=== PATIENT | male | born 1970 | race American Indian/Alaskan Native ===

== ENCOUNTER 2020-04-09 15:48 | Emergency (ER) | payer OTHER ==
[2020-04-09 17:09] VITALS: BP 150/90
[2020-04-09 18:23] LABS: Bilirubin,Urine NEG (Negative); Blood,Urine NEG (Negative); Color,Urine Yellow (Yellow); Mucus,Urine FEW /HPF; Protein,Urine <15 mg/dL mg/dL (Negative); RBC,Urine < 1.0 /HPF (0.0-6.0)
--- NOTE | 2020-04-09 18:32 | Emergency Department Report ---
Chief Complaint: Urogenital-Male Stated Complaint: BURNING URINE Time Seen by Provider: 04/09/20 17:09 - HPI History of Present Illness: This is a 49-year-old male nontoxic, well in appearance with no signs of distress presents to the ED intermittent dysuria and hematuria. Patient denies any penile discharge. Patient stated he is currently asymptotic. Denies any penile discharge, testicular pain, or swelling. Patient denies any other urinary symptoms. Denies any flank pain. Patient denies any fever, chills, headache, nausea, vomiting, chest pain or shortness of breathe. denies any other symptoms or complaints. Denies any allergies or PMH. - Exam Vital Signs: Vital Signs 04/09/20 17:08 Temperature 97.9 F Pulse Rate 77 Respiratory 16 Rate Blood Pressure 150/90 [Right] O2 Sat by Pulse 98 Oximetry Physical Exam: no penile discharge. no urinary symptoims. no flank pain. normal physical exam. MSE screening note: Focused history and physical exam performed. Due to findings the following was ordered: ED Medical Decision Making - Lab Data Lab Results 04/09/20 Range/Units 17:24 Urine Color Yellow (Yellow) Urine Turbidity Clear (Clear) Urine pH 5.0 (5.0-7.0) Ur Specific [place] 1.026 (1.003-1.030) Urine Protein <15 mg/dl (Negative) mg/dL Urine Glucose (UA) Neg (Negative) mg/dL Urine Ketones Neg (Negative) mg/dL Urine Blood Neg (Negative) Urine Nitrite Neg (Negative) Urine Bilirubin Neg (Negative) Urine Urobilinogen 2.0 (<2.0) mg/dL Ur Leukocyte Esterase Neg (Negative) Urine WBC (Auto) 1.0 (0.0-6.0) /HPF Urine RBC (Auto) < 1.0 (0.0-6.0) /HPF Urine Mucus Few /HPF - Medical Decision Making This is a 49-year-old male that presents with nonmedical emergency complaint. UA is unremarkable. Patient denies any symptoms. I gave patient many different referrals to follow-up with PCP. sent and was instructed to return in 3-5 days for results. Patient was instructed to Follow-up with a primary care doctor in 3-5 days or if symptoms worsen and continue return to emergency room as soon as possible. At time of discharge, the patient does not seem toxic or ill in appearance. No acute signs of distress noted. Patient agrees to discharge treatment plan of care. No further questions noted by the patient. ED Disposition for MSE Clinical Impression: History of dysuria Disposition: MED SCREENING EXAM-LEFT Is pt being admited?: No Does the pt Need Aspirin: No Condition: Stable Additional Instructions: Follow-up with a primary care doctor in 3-5 days or if symptoms worsen and continue return to emergency room as soon as possible. Referrals: PRIMARY CAREMD [Referring] - 3-5 Days BRENDA KEATING MD [Staff Physician] - 3-5 Days
== END 2020-04-09 18:59 | disposition left against medical advice (07) ==
LOC: ED 15:48
DX: R30.0 Dysuria (principal); Z53.21 Procedure and treatment not carried out due to patient leaving prior to being seen by health care provider
CPT/HCPCS: 81001

== ENCOUNTER 2021-01-20 08:36 | Emergency (ER) | payer OTHER ==
--- NOTE | 2021-01-20 09:51 | XRay Report ---
CHEST 2 VIEWS INDICATION: cough, fever. COMPARISON: None. FINDINGS: Support devices: None. Heart: Within normal limits. Lungs/Pleura: No acute air space or interstitial disease. No significant pleural effusion. IMPRESSION: No acute findings. Signer Name: Anoop Gonzáles MD Signed: 01/20/2021 9:47 AM Workstation Name: [id number]
--- NOTE | 2021-01-20 11:09 | Emergency Department Report ---
- General Chief Complaint: Upper Respiratory Infection Stated Complaint: VOMITING/YELLOW MUCUS W/COUGH Time Seen by Provider: 01/20/21 11:02 Source: patient Mode of arrival: Ambulatory Limitations: No Limitations - History of Present Illness Initial Comments: Patient is a 50-year-old male presents emergency room with complaints of a cough with mucus production that began 1 week ago. He has associated nausea, vomiting, diarrhea, generalized weakness, fatigue. He states that occasionally he has chest discomfort or shortness of breath after frequent coughing but otherwise is not experiencing chest pain or shortness of breath. He denies any chest pain or shortness of breath currently. He denies any hematochezia, melena, hematemesis, fever, urinary symptoms, leg swelling, pleuritic pain. Patient states that also for the last 2 days he has had irritation and redness to the bilateral eyes. He states he has associated drainage and crusting and when he wakes up in the morning his eyelashes are matted. He denies any known sick contacts or recent travel. He has not been vaccinated or tested for COVID- 19. He denies any past medical history. No allergies to medications. - Related Data Previous Rx's Medication Instructions Recorded Last Taken Type Benzonatate [Tessalon Perles] 100 mg PO Q8HR PRN #12 capsule 01/20/21 Unknown Rx Blood Sugar Diagnostic [Test 1 each MC TID #1 box 01/20/21 Unknown Rx Strips] Hyoscyamine Subl [Levsin Sl 0.125 0.125 mg SL Q6HR PRN #10 tab 01/20/21 Unknown Rx TAB] Insulin NPH/Regular [Novolin 70/30] 17 unit SUB-Q TIDAC #1 vial 01/20/21 Unknown Rx Ondansetron [Zofran Odt] 4 mg PO Q8HR PRN #10 tab.rapdis 01/20/21 Unknown Rx Polymyxin B Sulf/Trimethoprim 1 drop OP Q3HR 7 Days #1 bottle 01/20/21 Unknown Rx [Polytrim Eye Drops] Syringe-Needle,Insulin,0.5 ml 1 each MC TID #1 box 01/20/21 Unknown Rx [Insulin Syringe/Needle 0.5 ML] guaiFENesin ER [Mucinex ER] 600 mg PO Q12H #14 tablet.er 01/20/21 Unknown Rx Allergies Allergy/AdvReac Type Severity Reaction Status Date / Time No Known Allergies Allergy Unverified 04/09/20 17:07 ED Review of Systems ROS: Stated complaint: VOMITING/YELLOW MUCUS W/COUGH Other details as noted in HPI Comment: All other systems reviewed and negative ED Past Medical Hx - Past Medical History Previous Medical History?: No - Surgical History Past Surgical History?: No - Medications Home Medications: Home Medications Medication Instructions Recorded Confirmed Last Taken Type Benzonatate [Tessalon Perles] 100 mg PO Q8HR PRN #12 capsule 01/20/21 Unknown Rx Blood Sugar Diagnostic [Test 1 each MC TID #1 box 01/20/21 Unknown Rx Strips] Hyoscyamine Subl [Levsin Sl 0.125 0.125 mg SL Q6HR PRN #10 tab 01/20/21 Unknown Rx TAB] Insulin NPH/Regular [Novolin 70/30] 17 unit SUB-Q TIDAC #1 vial 01/20/21 Unknown Rx Ondansetron [Zofran Odt] 4 mg PO Q8HR PRN #10 tab.rapdis 01/20/21 Unknown Rx Polymyxin B Sulf/Trimethoprim 1 drop OP Q3HR 7 Days #1 bottle 01/20/21 Unknown Rx [Polytrim Eye Drops] Syringe-Needle,Insulin,0.5 ml 1 each MC TID #1 box 01/20/21 Unknown Rx [Insulin Syringe/Needle 0.5 ML] guaiFENesin ER [Mucinex ER] 600 mg PO Q12H #14 tablet.er 01/20/21 Unknown Rx ED Physical Exam - General Limitations: No Limitations General appearance: alert, in no apparent distress - Head Head exam: Present: atraumatic, normocephalic - Eye Eye exam: Present: PERRL, EOMI, conjunctival injection (bilaterally). Absent: periorbital swelling, periorbital tenderness - ENT ENT exam: Present: mucous membranes moist - Respiratory Respiratory exam: Present: normal lung sounds bilaterally. Absent: respiratory distress, wheezes, rales, rhonchi, stridor, chest wall tenderness, accessory muscle use, decreased breath sounds, prolonged expiratory - Cardiovascular Cardiovascular Exam: Present: regular rate, normal rhythm, normal heart sounds. Absent: systolic murmur, diastolic murmur, rubs, gallop - GI/Abdominal GI/Abdominal exam: Present: soft, normal bowel sounds. Absent: distended, tenderness, guarding, rebound, rigid - Neurological Exam Neurological exam: Present: alert, oriented X3 - Psychiatric Psychiatric exam: Present: normal affect, normal mood - Skin Skin exam: Present: warm, dry, intact ED Course Vital Signs 01/20/21 01/20/21 09:25 13:11 Temperature 99.6 F Pulse Rate 84 78 Respiratory 16 Rate Blood Pressure 143/76 145/82 [Right] O2 Sat by Pulse 96 98 Oximetry ED Medical Decision Making - Lab Data Result diagrams: 01/20/21 12:06 01/20/21 12:06 Labs 01/20/21 01/20/21 12:06 12:06 WBC 6.0 RBC 4.12 Hgb 14.3 Hct 40.6 MCV 99 H MCH 35 H MCHC 35 H RDW 12.7 L Plt Count 168 Lymph % (Auto) 14.5 Cass % (Auto) 9.5 H Eos % (Auto) 0.3 Baso % (Auto) 0.2 Lymph # (Auto) 0.9 L Cass # (Auto) 0.6 Eos # (Auto) 0.0 Baso # (Auto) 0.0 Seg Neutrophils % 75.5 H Seg Neutrophils # 4.5 Sodium 138 Potassium 3.7 Chloride 100.9 Carbon Dioxide 25 Anion Gap 16 BUN 15 Creatinine 1.1 Estimated GFR > 60 BUN/Creatinine Ratio 14 Glucose 97 Calcium 8.8 Total Bilirubin 0.80 AST 23 ALT 14 Alkaline Phosphatase 85 Total Protein 8.6 H Albumin 4.3 Albumin/Globulin Ratio 1.0 Lipase 44 Vital Signs 01/20/21 01/20/21 09:25 13:11 Temperature 99.6 F Pulse Rate 84 78 Respiratory 16 Rate Blood Pressure 143/76 145/82 [Right] O2 Sat by Pulse 96 98 Oximetry - Radiology Data Radiology results: report reviewed Ordering Physician: RACHELLE SKAGGS MD Date of Service: 01/20/21 Procedure(s): XR chest routine 2V Accession Number(s): [id number] cc: RACHELLE SKAGGS MD Fluoro Time In Minutes: CHEST 2 VIEWS INDICATION: cough, fever. COMPARISON: None. FINDINGS: Support devices: None. Heart: Within normal limits. Lungs/Pleura: No acute air space or interstitial disease. No significant pleural effusion. IMPRESSION: No acute findings. Signer Name: Anoop Gonzáles MD Signed: 01/20/2021 9:47 AM Workstation Name: [id number] Transcribed By: ES Dictated By: Anoop Gonzáles MD Electronically Authenticated By: Anoop Gonzáles MD Signed Date/Time: 01/20/21946 DD/ 5 TD/TT: Print - Medical Decision Making Patient is a 50-year-old male presents emergency room with complaints of a cough with mucus production that began 1 week ago. He has associated nausea, vomiting, diarrhea, generalized weakness, fatigue. He states that occasionally he has chest discomfort or shortness of breath after frequent coughing but otherwise is not experiencing chest pain or shortness of breath. He denies any chest pain or shortness of breath currently. He denies any hematochezia, melena, hematemesis, fever, urinary symptoms, leg swelling, pleuritic pain. Patient states that also for the last 2 days he has had irritation and redness to the bilateral eyes. He states he has associated drainage and crusting and when he wakes up in the morning his eyelashes are matted. He denies any known sick contacts or recent travel. He has not been vaccinated or tested for COVID- 19. He denies any past medical history. No allergies to medications. Vitals are stable. Patient is able to maintain oxygen saturation of 95% or greater on room air. No abnormality on physical examination as documented in chart. Labs are stable. Chest x-ray with no acute process. Symptoms could be potentially related to viral URI. No clinical signs of bacterial pneumonia or bacterial bronchitis at this time. Given that he is presenting with the symptoms during COVID-19 pandemic, discussed the possibility of COVID-19 with patient, discussed return precautions, discussed outpatient testing, discussed self quarantine. Patient does not meet hospital criteria for admission at this time. Advised patient Please use medication as prescribed. Please increase your fluid intake over the next several days. May take Tylenol as needed for fever or body aches. Follow-up with a primary care doctor for reexamination. Return to emergency room immediately for any new or worsening symptoms including but not limited to difficulty breathing, shortness of breath, severe chest pain, unable to tolerate by mouth intake, etc. Please self quarantine for 10 days from the onset of yo ur symptoms. Please do not go out in public. If you are around others at home please wear a mask. If you need to cough or sneeze please do so in a napkin and immediately throw it away and immediately wash your hands. Wash your hands frequently. Wipe everything down. Recommend for you to get COVID-19 testing, may have this done at primary care doctor, health department, [facility], etc Critical care attestation.: If time is entered above; I have spent that time in minutes in the direct care of this critically ill patient, excluding procedure time. ED Disposition Clinical Impression: Nausea vomiting and diarrhea, Cough Conjunctivitis Qualifiers: Conjunctivitis type: acute Acute conjunctivitis type: unspecified Laterality: bilateral Qualified Code(s): H10.33 - Unspecified acute conjunctivitis, ez ateral Disposition: TO HOME OR SELFCARE Is pt being admited?: No Does the pt Need Aspirin: No Condition: Stable Instructions: COVID-19, Viral Conjunctivitis, Adult, Bacterial Conjunctivitis, Adult, Viral Respiratory Infection Additional Instructions: Please use medication as prescribed. Please increase your fluid intake over the next several days. May take Tylenol as needed for fever or body aches. Follow-up with a primary care doctor for reexamination. Return to emergency room immediately for any new or worsening symptoms including but not limited to difficulty breathing, shortness of breath, severe chest pain, unable to tolerate by mouth intake, etc. Please self quarantine for 10 days from the onset of your symptoms. Please do not go out in public. If you are around others at home please wear a mask. If you need to cough or sneeze please do so in a napkin and immediately throw it away and immediately wash your hands. Wash your hands frequently. Wipe everything down. Recommend for you to get COVID-19 testing, may have this done at primary care doctor, health department, [facility], etc Prescriptions: Syringe-Needle,Insulin,0.5 ml [Insulin Syringe/Needle 0.5 ML] 1 each MC TID #1 box Hyoscyamine Subl [Levsin Sl 0.125 TAB] 0.125 mg SL Q6HR PRN #10 tab PRN Reason: diarrhea/abdominal cramping guaiFENesin ER [Mucinex ER] 600 mg PO Q12H #14 tablet.er Insulin NPH/Regular [Novolin 70/30] 17 unit SUB-Q TIDAC #1 vial Polymyxin B Sulf/Trimethoprim [Polytrim Eye Drops] 1 drop OP Q3HR 7 Days #1 sanjay ttle Benzonatate [Tessalon Perles] 100 mg PO Q8HR PRN #12 capsule PRN Reason: cough Blood Sugar Diagnostic [Test Strips] 1 each MC TID #1 box Ondansetron [Zofran Odt] 4 mg PO Q8HR PRN #10 tab.rapdis PRN Reason: nausea/vomiting Referrals: BRENDA KEATING MD [Staff Physician] - 2-3 Days [facility] [Provider Group] - 2-3 Days Forms: Work/School Release Form(ED) Time of Disposition: 13:02 Print Language: DANISH
[2021-01-20 12:36] LABS: Basophils % (Auto) 0.2 % (0.0-1.8); Eosinophils % (Auto) 0.3 % (0.0-4.3); Hematocrit 40.6 % (35.5-45.6); Hemoglobin 14.3 gm/dl (11.8-15.2); Lymphocytes # (Auto) 0.9 K/mm3 (1.2-5.4); Lymphocytes % (Auto) 14.5 % (13.4-35.0); Mean Corpuscular HGB Conc 35 % (32-34); Mean Corpuscular Volume 99 fl (84-94); Monocytes # (Auto) 0.6 K/mm3 (0.0-0.8); Monocytes % (Auto) 9.5 % (0.0-7.3); Platelet Count 168 K/mm3 (140-440); Red Blood Count 4.12 M/mm3 (3.65-5.03); Red Cell Distribution Width 12.7 % (13.2-15.2)
[2021-01-20 12:51] LABS: Alanine Aminotransferase 14 units/L (7-56); Albumin 4.3 g/dL (3.9-5); BUN/Creatinine Ratio 14; Blood Urea Nitrogen 15 mg/dL (9-20); Calcium 8.8 mg/dL (8.4-10.2); Hemolysis Index 4
[2021-01-20 13:11] VITALS: BP 145/82
--- NOTE | 2021-01-20 20:11 | Event Note ---
Date: 01/20/21 Notified by ER staff regarding patient elevated glucose upon return of abnormal laboratory values but prior to evaluation and resuscitation. Recommend IV fluid resuscitation therapy as well as insulin therapy. Repeat insulin dosing as clinically indicated and patient may be discharged home with diabetic teaching and weight-based insulin therapy.
[2021-01-20] MEDS ORDERED: SODIUM CHLORIDE 0.9% 1000 ML 3,000 ML IV ONE (20:30)
[2021-01-20] MEDS ORDERED: INSULIN REGULAR, HUMAN 100 UNITS/1 ML IV ONE (21:00)
== END 2021-01-20 13:07 | disposition home or self-care (01) ==
LOC: ED 08:36
DX: H10.9 Unspecified conjunctivitis (principal); R05 Cough; R11.2 Nausea with vomiting, unspecified; R19.7 Diarrhea, unspecified; Z79.899 Other long term (current) drug therapy
CPT/HCPCS: 36415; 71046; 80053; 83690; 85025; 99283